=== PATIENT | male | born 1985 | race Caucasian/White ===

== ENCOUNTER 2020-11-30 21:10 | Emergency (ER) | payer BC ==
[2020-11-30] MEDS ORDERED: Bacitracin Oint 1 GM U/D Packet TOP ONE (22:03)
--- NOTE | 2020-11-30 22:19 | EDM.PDOC ---
ED HPI GENERAL MEDICAL PROBLEM - General Chief Complaint: Laceration Stated Complaint: FISH HOOK Time Seen by Provider: 11/30/20 21:31 Source of Information: Reports: Patient History Limitations: Reports: No Limitations - History of Present Illness INITIAL COMMENTS - FREE TEXT/NARRATIVE: Isidro is a 35-year-old male presenting to the ED with a fishhook in the back of his right hand. Patient had a fish on the line and was trying to take it off of the lower 1 a fish jerked causing the other trouble hook to become attached to the skin over his right second MCP. Patient has full range of motion and does not appear that the hook or masood penetrated the tendon sheath or tendon. He is up-to-date on his shots as he works for the [employer] in [employer]. - Related Data Allergies Allergy/AdvReac Type Severity Reaction Status Date / Time No Known Allergies Allergy Verified 11/30/20 22:00 Past Medical History - Past Health History Medical/Surgical History: Denies Medical/Surgical History ED ROS GENERAL - Review of Systems Review Of Systems: See Below Musculoskeletal: Reports: Hand Pain (Due to a fishhook) Skin: Reports: Other (Verdigre in the skin of the dorsal second MCP of the right hand) Neurological: Reports: No Symptoms ED EXAM, SKIN/RASH Exam: See Below Exam Limited By: No Limitations General Appearance: Alert, No Apparent Distress Extremities: Normal Range of Motion, Other (Patient has a fishhook embedded in the skin of the dorsal right second MCP. He has normal range of motion of the hand.) ED SKIN PROCEDURES - Foreign Body Removal Indication:: Verdigre embedded in dorsal right hand Consent Obtained:: Patient Performing Doctor:: Macario George Anesthesia Type: Local (The area around the fishhook was injected with lidocaine 1% requiring 1 cc.) Findings:: An 18-gauge needle was advanced along the edge of the fishhook and over the masood. A needle vacuum truck driver was used to grab the fishhook and was able to extract it back through the original tract. Light pressure was applied to the finger to control bleeding. The patient tolerated the procedure well without problem. Course - Orders/Labs/Meds Meds: Medications Discontinued Medications Generic Name Dose Route Start Last Admin Trade Name Freq PRN Reason Stop Dose Admin Bacitracin 1 dose 11/30/20 22:03 11/30/20 22:07 Bacitracin Oint 1 Gm U/D Packet TOP 11/30/20 22:04 1 dose ONETIME ONE Administration Lidocaine HCl 5 ml 11/30/20 21:31 11/30/20 22:07 Lidocaine 1% 5 Ml Sdv INJECT 11/30/20 21:32 5 ml ONETIME ONE Administration - Re-Assessments/Exams Free Text/Narrative Re-Assessment/Exam: 11/30/20 22:17 after anesthetizing the area with 1% lidocaine, the fishhook was successfully removed. A light coating of bacitracin was applied over the wound and a dressing was applied by the nurse. Because of the nature of the wound, we will put the patient on cephalexin 500 mg 3 times daily for 5 days. This was sent to the [facility] so the patient may start it now. Indications return to the ED were discussed. All questions were answered prior to discharge. Departure - Departure Time of Disposition: 22:18 Disposition: Home, Self-Care 01 Clinical Impression: Verdigre injury to finger Qualifiers: Encounter type: initial encounter Laterality: right Qualified Code(s): S69.91XA - Unspecified injury of right wrist, hand and finger(s), initial encounter - Discharge Information Instructions: Puncture Wound, [id number] Referrals: PCP,None [Primary Care Provider] - Care Plan Goals: As a preventive measure, we are going to put you on cephalexin 500 mg 3 times a day for 5 days to prevent infection due to the hook injury. Keep the area clean and dry. You may want apply a light coating of bacitracin to the wound twice daily. Good luck with fishing and try not to book yourself anywhere that she need to explain. Stay cool and safe in [place]. - Problem List & Annotations (1) Verdigre injury to finger SNOMED Code(s): 89488137 Code(s): S69.90XA - UNSP INJURY OF UNSP WRIST, HAND AND FINGER(S), INIT ENCNTR Status: Acute Priority: Low Current Visit: Yes Qualifiers: Encounter type: initial encounter Laterality: right Qualified Code(s): S69.91XA - Unspecified injury of right wrist, hand and finger(s), initial encounter - Problem List Review Problem List Initiated/Reviewed/Updated: Yes
== END 2020-11-30 22:25 | disposition home or self-care (01) ==
LOC: JP.ED 21:10
DX: S60.551A Superficial foreign body of right hand, initial encounter (principal); W45.8XXA Other foreign body or object entering through skin, initial encounter
CPT/HCPCS: 99283